=== PATIENT | male | born 1960 | race African-American/Black ===

== ENCOUNTER 2021-02-23 14:13 | Emergency (ER) | payer SELFPAY ==
[~2021-02-23] VITALS: Ht 185.4 cm; Wt 100.0 kg
[2021-02-23 15:19] VITALS: BP 147/113
[2021-02-23] MEDS ORDERED: ALBU6.7H9 INH (16:03)
== END 2021-02-23 16:56 | disposition home or self-care (01) ==
LOC: ER 14:13
DX: U07.1 COVID-19 (principal); E11.9 Type 2 diabetes mellitus without complications; I10 Essential (primary) hypertension; I25.2 Old myocardial infarction
CPT/HCPCS: 99283; C9803; U0003; U0005